=== PATIENT | male | born 2000 | race Caucasian/White ===

== ENCOUNTER 2024-02-08 07:48 | Emergency (ER) | payer BC ==
[2024-02-08 07:56] VITALS: BP 142/96; PULSE 85; RESP 20; TEMP 98.4
--- NOTE | 2024-02-08 08:07 | ED ---
Wound/Laceration HPI - General Chief Complaint: Wound/Laceration Stated Complaint: Left leg laceration Time Seen by Provider: 02/08/24 07:57 Source: patient, RN notes reviewed Mode of arrival: ambulatory Limitations: no limitations - History of Present Illness Initial Comments: This is a 23-year-old male who presents to the emergency department for a lac eration. States that he was cutting something and the knife slipped, causing a laceration to his left upper thigh. Tetanus vaccine is up-to-date. Pain is controlled at this time. - Related Data Previous Rx's Medication Instructions Recorded Ibuprofen [Motrin] 800 mg PO Q6HR PRN #20 tab 06/20/15 Allergies Allergy/AdvReac Type Severity Reaction Status Date / Time No Known Allergies Allergy Verified 02/08/24 07:56 Review of Systems ROS Statement: Those systems with pertinent positive or pertinent negative responses have been documented in the HPI. ROS Other: All systems not noted in ROS Statement are negative. Past Medical History Past Medical History: Asthma History of Any Multi-Drug Resistant Organisms: None Reported Past Surgical History: Adenoidectomy Past Psychological History: No Psychological Hx Reported Smoking Status: Current every day smoker Past Alcohol Use History: Occasional Past Drug Use History: None Reported General Exam Limitations: no limitations General appearance: alert, in no apparent distress Head exam: Present: atraumatic, normocephalic, normal inspection Respiratory exam: Present: normal lung sounds bilaterally. Absent: respiratory distress, wheezes, rales, rhonchi, stridor Cardiovascular Exam: Present: regular rate, normal rhythm, normal heart sounds. Absent: systolic murmur, diastolic murmur, rubs, gallop, clicks Extremities exam: Present: other (Laceration to the anterior aspect of the left thigh with visible subcutaneous tissue and minor active bleeding.) Neurological exam: Present: alert, oriented X3, CN II-XII intact Psychiatric exam: Present: normal affect, normal mood Course Vital Signs 02/08/24 07:54 Temperature 98.4 F Pulse Rate 85 Respiratory 20 Rate Blood Pressure 142/96 O2 Sat by Pulse 99 Oximetry Procedures - Laceration Laceration #1 Consent Obtained: verbal consent Indication: laceration Site: lower extremity Size (cm): 5 Description: linear Depth: simple, single layer Anesthetic Used: lidocaine 1% Anesthesia Technique: local infiltration Amount (mls): 5 Pre-repair: irrigated extensively Type of Sutures: nylon Size of Sutures: 4-0 Number of Sutures: 7 Technique: simple, interrupted Medical Decision Making - Medical Decision Making This is a 23-year-old male who presents to the emergency department for a laceration. Was pt. sent in by a medical professional or institution? @ -No Did you speak to anyone other than the patient for history? @ -No Did you review nursing and triage notes? @ -Yes, and I agree, it is accurate with regards to the patient's symptoms. Were old charts reviewed? @ -No Differential Diagnosis? @ -Differential Laceration: Laceration, abrasion, cellulitis, abscess, this is not meant to be an all- inclusive list. EKG interpreted by me (3pts min.)? @ -Not obtained X-rays interpreted by me (1pt min.)? @ -Not obtained CT interpreted by me (1pt min.)? @ -Not obtained U/S interpreted by me (1pt. min.)? @ -Not obtained What testing was considered but not performed? (CT, X-rays, U/S, labs)? Why? @ -None What meds were considered but not given? Why? @ -None Did you discuss the management of the patient with other professionals? @ -No Did you reconcile home meds? @ -No Was smoking cessation discussed for >3mins.? @ -No Was critical care preformed (if so, how long)? @ -No Were there social determinants of health that impacted care today? How? (Homelessness, low income, unemployed, alcoholism, drug addiction, transportation, low edu. Level, literacy, decrease access to med. care, [facility], rehab)? @ -No Was there de-escalation of care discussed even if they declined? (Discuss DNR or withdrawal of care, Hospice)? @ -No What co-morbidities impacted this encounter? (DM, HTN, Smoking, COPD, CAD, Cancer, CVA, Hep., AIDS, mental health diagnosis, sleep apnea, morbid obesity)? @ -None Was patient admitted / discharged? @ -Discharged. The laceration was cleansed and repaired with sutures. Patient's tetanus vaccine is up-to-date. Advised ibuprofen and Tylenol as needed for pain relief. He is instructed to return in 7 to 10 days for suture removal. Undiagnosed new problem with uncertain prognosis? @ -None Drug Therapy requiring intensive monitoring for toxicity (Heparin, Nitro, Insulin, Cardizem)? @ -None Were any procedures done? @ -Laceration repair with sutures Diagnosis/symptom? @ -Laceration Acute, or Chronic, or Acute on Chronic? @ -Acute Uncomplicated (without systemic symptoms) or Complicated (systemic symptoms)? @ -Uncomplicated Side effects of treatment? @ -None Exacerbation, Progression, or Severe Exacerbation] @ -Not applicable Poses a threat to life or bodily function? @ -No Return precautions reviewed in depth, the patient is instructed to return to the emergency department with any new, worsening, or concerning symptoms. Patient verbalized understanding. This case was discussed in detail with the attending ED physician, Dr. Rust. Presentation, findings, and treatment plan discussed in detail as well. Disposition Clinical Impression: Laceration Disposition: HOME SELF-CARE Instructions (If sedation given, give patient instructions): Care For Your Stitches (ED) Additional Instructions: Return to the emergency department with any new, worsening, or concerning symptoms and in 7-10 days for removal of the stitches. Alternate with ibuprofen and Tylenol as needed for pain relief. Is patient prescribed a controlled substance at d/c from ED?: No Referrals: Jesse Jones MD [Primary Care Provider] - 1-2 days Time of Disposition: 08:32
[2024-02-08] MEDS: LIDOCAINE 1% INJ 10MG/ML (20 ML MDV) SQ ONE (08:08)
== END 2024-02-08 08:52 | disposition home or self-care (01) ==
LOC: EC 07:48
DX: S81.812A Laceration without foreign body, left lower leg, initial encounter (principal); F17.200 Nicotine dependence, unspecified, uncomplicated; W26.0XXA Contact with knife, initial encounter
CPT/HCPCS: 99282; 12002; J2001